=== PATIENT | male | born 1995 | race Caucasian/White ===

== ENCOUNTER 2022-02-07 20:40 | Emergency (ER) | payer OTHER ==
[2022-02-07 21:58] VITALS: BP 122/72; PULSE 52; TEMP 98.1; BMI 26.3
== END 2022-02-07 23:59 | disposition home or self-care (01) ==
LOC: JER 20:40
DX: F11.920 Opioid use, unspecified with intoxication, uncomplicated (principal)
CPT/HCPCS: 99281-25

== ENCOUNTER 2022-02-08 08:51 | Inpatient (IN) | payer OTHER ==
[2022-02-08 11:04] VITALS: BMI 26.9
[2022-02-08] MEDS ORDERED: IBUPROFEN 600 MG TABLET (FP) PO PRN (11:09)
[2022-02-08] MEDS ORDERED: IBUPROFEN 400 MG TABLET (FP) PO PRN (11:09)
[2022-02-08] MEDS ORDERED: LOPERAMIDE HCL 2 MG CAPSULE PO PRN (11:09)
[2022-02-08] MEDS ORDERED: BENZOCAINE/MENTHOL (CHLORASEPTIC ) LOZENGE MM PRN (11:09)
[2022-02-08] MEDS ORDERED: BISMUTH SUBSALICYLATE 262 MG/15 ML BTL PO PRN (11:09)
[2022-02-08] MEDS ORDERED: methaDONE HCL 10 MG TABLET (FOR DETOX USE ONLY) PO ONE ×2 (11:09→19:30)
[2022-02-08] MEDS ORDERED: NALOXONE HCL 0.4 MG/ML VIAL IM PRN (11:09)
[2022-02-08] MEDS ORDERED: ACETAMINOPHEN 325 MG TABLET (FP) PO PRN ×2 (11:09)
[2022-02-08] MEDS ORDERED: cloNIDine HCL 0.1 MG TABLET PO PRN (11:09)
[2022-02-08] MEDS ORDERED: MAGNESIUM CITRATE 300 ML BOTTLE PO PRN (11:09)
[2022-02-08] MEDS ORDERED: MAG HYDROX/AL HYDROX/SIMETH 30 ML UNIT-DOSE CUP PO PRN (11:09)
[2022-02-08] MEDS ORDERED: MAGNESIUM HYDROX 2400MG/30ML ORAL SUSPENSION 30 ML CUP PO PRN (11:09)
[2022-02-08] MEDS ORDERED: DICYCLOMINE HCL 10 MG CAPSULE PO PRN (11:09)
[2022-02-08 14:35] LABS: HEMATOCRIT 41.6 % (35.4-49); HEMOGLOBIN 14.2 GM/dL (11.7-16.9); MCH 28.7 pg (25.7-33.7); MCHC 34.2 g/dl (32.0-35.9); MEAN PLT VOLUME 8.8 fl (7.5-11.1); PLATELET COUNT 247 10^3/uL (134-434); RBC 4.95 M/mm3 (4.00-5.60); RDW 13.2 % (11.9-15.9); WHITE BLOOD COUNT 7.3 K/mm3 (4.0-10.0)
[2022-02-08 15:45] LABS: ALBUMIN 4.2 g/dl (3.4-5.0)
[2022-02-08 15:48] LABS: BLOOD UREA NITROGEN 13.9 mg/dL (7-18)
[2022-02-08 15:50] LABS: CALCIUM 9.3 mg/dL (8.5-10.1)
[2022-02-08 15:54] LABS: BILIRUBIN,TOTAL 0.6 mg/dL (0.2-1); CREATININE 1.1 mg/dL (0.55-1.3); TOT PROT 7.6 g/dl (6.4-8.2)
[2022-02-08] MEDS: NICOTINE 7 MG/24 HOURS TOPICAL PATCH TD SCH (19:54)
[2022-02-08] MEDS: MELATONIN 5 MG TABLETS PO SCH (22:38)
[2022-02-08] MEDS: THIAMINE HCL 100 MG TABLET (FP) PO SCH (22:38)
[2022-02-09] MEDS: NICOTINE 10 MG CARTRIDGE (INHALER) IH PRN ×5 (06:50→22:55)
[2022-02-09] MEDS ORDERED: methaDONE HCL 10 MG TABLET (FOR DETOX USE ONLY) ONE (09:15)
[2022-02-09] MEDS: NICOTINE 7 MG/24 HOURS TOPICAL PATCH TD SCH (10:23)
[2022-02-09] MEDS: METHOCARBAMOL 500 MG TABLET PO PRN (10:23)
[2022-02-09] MEDS: PRENATAL VITAMINS W/ FOLIC ACID TABLET (FP) PO SCH (10:23)
[2022-02-09] MEDS: diazePAM 5 MG TABLET PO PRN ×3 (11:05→22:28)
[2022-02-09] MEDS: MELATONIN 5 MG TABLETS PO SCH (22:26)
[2022-02-09] MEDS: THIAMINE HCL 100 MG TABLET (FP) PO SCH (22:26)
[2022-02-09] MEDS: traZODone HCL 50 MG TABLET (FP) PO PRN (22:29)
[2022-02-10] MEDS: NICOTINE 10 MG CARTRIDGE (INHALER) IH PRN ×3 (08:36→16:50)
[2022-02-10] MEDS ORDERED: methaDONE HCL 10 MG TABLET (FOR DETOX USE ONLY) PO ONE (10:00)
[2022-02-10] MEDS: PRENATAL VITAMINS W/ FOLIC ACID TABLET (FP) PO SCH (10:07)
[2022-02-10] MEDS: NICOTINE 7 MG/24 HOURS TOPICAL PATCH TD SCH (10:08)
[2022-02-10] MEDS: diazePAM 5 MG TABLET PO PRN ×2 (18:02→22:46)
[2022-02-10] MEDS: METHOCARBAMOL 500 MG TABLET PO PRN (18:02)
[2022-02-10] MEDS: THIAMINE HCL 100 MG TABLET (FP) PO SCH (22:46)
[2022-02-10] MEDS: traZODone HCL 50 MG TABLET (FP) PO PRN (22:47)
[2022-02-10] MEDS: MELATONIN 5 MG TABLETS PO SCH (22:47)
[2022-02-11] MEDS: NICOTINE 10 MG CARTRIDGE (INHALER) IH PRN ×4 (07:05→18:58)
[2022-02-11] MEDS ORDERED: methaDONE HCL 10 MG TABLET (FOR DETOX USE ONLY) ONE (09:32)
[2022-02-11] MEDS: PRENATAL VITAMINS W/ FOLIC ACID TABLET (FP) PO SCH (10:14)
[2022-02-11] MEDS: NICOTINE 7 MG/24 HOURS TOPICAL PATCH TD SCH (10:14)
[2022-02-11] MEDS ORDERED: amLODIPine BESYLATE 2.5 MG TABLET (FP) PO SCH (13:00)
[2022-02-11] MEDS ORDERED: amLODIPine BESYLATE 5 MG TABLET (FP) PO SCH (13:38)
[2022-02-11] MEDS: THIAMINE HCL 100 MG TABLET (FP) PO SCH (22:38)
[2022-02-11] MEDS: traZODone HCL 50 MG TABLET (FP) PO PRN (22:38)
[2022-02-12] MEDS: NICOTINE 10 MG CARTRIDGE (INHALER) IH PRN (06:04)
[2022-02-12 06:23] VITALS: BP 142/99; PULSE 60; TEMP 98.4
[2022-02-12] MEDS ORDERED: methaDONE HCL 10 MG TABLET (FOR DETOX USE ONLY) PO ONE (10:00)
== END 2022-02-12 08:41 | disposition home or self-care (01) | DRG 773 ==
LOC: YASAS 08:51 → Y6N 12:19
PROVIDERS: ADMIT Allergy & Immunology; ATTEND Surgery
PROC: HZ2ZZZZ Detoxification Services for Substance Abuse Treatment (ICD-10-PCS; principal; 2022-02-08)
DX: F11.23 Opioid dependence with withdrawal (principal); F17.210 Nicotine dependence, cigarettes, uncomplicated; F19.282 Other psychoactive substance dependence with psychoactive substance-induced sleep disorder; F34.1 Dysthymic disorder; G47.00 Insomnia, unspecified; R00.1 Bradycardia, unspecified
CPT/HCPCS: 36415; 80053; 85027; 86780; 93005; 93010; C9803-CS; J0735; U0003; U0005

== ENCOUNTER 2022-02-08 13:10 | Emergency (ER) | payer OTHER ==
[2022-02-08 13:26] VITALS: TEMP 97.8; BMI 26.9
[2022-02-08 15:38] LABS: BASO % 0.4 % (0-2.0); EOS % 1.9 % (0-4.5); HEMATOCRIT 39.4 % (35.4-49); HEMOGLOBIN 13.4 GM/dL (11.7-16.9); LYMPH % 16.9 % (8-40); MCH 28.4 pg (25.7-33.7); MEAN CELL VOLUME 83.5 fl (80-96); MEAN PLT VOLUME 8.8 fl (7.5-11.1); MONO % 8.1 % (3.8-10.2); NEUT % 72.7 % (42.8-82.8); PLATELET COUNT 240 10^3/uL (134-434); RBC 4.72 M/mm3 (4.00-5.60); RDW 13.2 % (11.9-15.9); WHITE BLOOD COUNT 10.6 K/mm3 (4.0-10.0)
[2022-02-08 16:10] LABS: CALCIUM 9.1 mg/dL (8.5-10.1)
[2022-02-08 16:11] LABS: BLOOD UREA NITROGEN 13.8 mg/dL (7-18)
[2022-02-08 16:14] LABS: CREATININE 0.9 mg/dL (0.55-1.3)
[2022-02-08 18:13] VITALS: BP 110/62; PULSE 56
== END 2022-02-08 18:14 ==
LOC: JER 13:10
DX: R00.1 Bradycardia, unspecified (principal)
CPT/HCPCS: 36415; 80048; 84443; 85025; 93005; 93010; 99284-25